=== PATIENT | female | born 1975 | race African-American/Black ===

== ENCOUNTER 2017-03-19 08:00 | Emergency (ER) | payer MEDICARE, OTHER ==
[~2017-03-19] VITALS: Ht 172.7 cm; Wt 134.7 kg
[~2017-03-19 08:00] MED LIST: HYDR-971 PO; PRED20TA PO
--- NOTE | 2017-03-19 08:41 | PHYS DOC ---
Past Medical History Past Medical History: Arthritis, Asthma, Hypertension, Other Additional Past Medical Histor: JORGE, osteoperosis, spinal stenosis, morbid obesity Past Surgical History: Other Additional Past Surgical Histo: knee surgery, sinus surgery Additional Information: 12/03 ppd Alcohol Use: None Drug Use: None Adult General Chief Complaint Chief Complaint: BACK PAIN OR INJURY HPI HPI Patient is a 41 year old female with history of hypertension asthma and arthritis who presents today with 10 out of 10 sharp right low back pain radiating into the right lower extremity that began a week ago when she fell. Patient denies any loss of consciousness. Patient denies any numbness or tingling to bilateral lower extremities. Denies any loss of bowel bladder function. She states the pain is worse when she is ambulating. She is also complaining of 10 out of 10 right medial knee pain. Patient states the pain began after she fell. Patient denies falling on the knee. She is requesting fentanyl for pain. She states her back has been x-rayed multiple times, she states she's been told she has arthritis in her back and she needs surgery. She states she follows up with [facility] as well as neurosurgeon. Review of Systems Review of Systems Constitutional: Denies fever or chills [] Eyes: Denies change in visual acuity, redness, or eye pain [] Musculoskeletal: Low back pain and right knee pain Integument: Denies rash or skin lesions [] Neurologic: Denies headache, focal weakness or sensory changes [] Endocrine: Denies polyuria or polydipsia [] Current Medications Current Medications Current Medications Medications (Trade) Dose Ordered Sig/Claudette Start Time Stop Time Status Last Admin Dose Admin Fentanyl Citrate (Fentanyl 2ml Vial) 50 mcg 1X ONCE 03/19/17 08:45 03/19/17 08:46 DC 03/19/17 08:31 50 MCG Allergies Allergies Allergies Coded Allergies Type Severity Reaction Last Updated Verified clindamycin Allergy Unknown 01/05/17 Yes hydromorphone Allergy Unknown 01/05/17 Yes Physical Exam Physical Exam Constitutional: Well developed, well nourished, no acute distress, non-toxic appearance. [] HENT: Normocephalic, atraumatic, bilateral external ears normal, oropharynx moist, no oral exudates, nose normal. [] Skin: Warm, dry, no erythema, no rash. [] Back: Diffuse paraspinal muscle tenderness to the right low lumbar region worse on the right SI joint, no midline tenderness, no CVA tenderness. Positive right leg straight raises. Extremities: Overweight patient, knee exam difficult due to weight as well as pain. Tenderness on palpation of the right medial knee. Patient herself is refusing to take the right knee through range of motion stating is painful. +2 right pedal pulse. Cap refill less than 2 seconds the right lower extremity. Sensation intact to the right lower extremity. Neurologic: Alert and oriented X 3, normal motor function, normal sensory function, no focal deficits noted. [] Psychologic: Affect normal, judgement normal, mood normal. [] Current Patient Data Vital Signs Vital Signs Date Time Temp Pulse Resp B/P Pulse Ox O2 Delivery O2 Flow Rate FiO2 03/19/17 08:32 78 18 130/67 98 Room Air 03/19/17 08:08 98.2 98.2 EKG EKG [] Radiology/Procedures Radiology/Procedures []PROCEDURE: KNEE RIGHT 4V Right knee, 4 views, 03/19/2017: History: Fall, right knee pain There is narrowing of the knee joint with moderate marginal spurring. There is severe degenerative change at the patellofemoral articulation. No fracture or dislocation is identified. There is mild subcutaneous edema about the knee. IMPRESSION: 1. Moderately severe degenerative change. 2. No acute bony or mass is detected. DICTATED and SIGNED BY: HAILEY ELLER MD DATE: 03/19/17 0906 CC: JONY DE LA FUENTE MD; EREN HAILE APRN ~ PROCEDURE: LUMBAR SPINE 2-3V Lumbar spine, 3 views, 03/19/2017: History: Low back pain radiating down the right leg, fall There is a well-defined calcific density along the anterosuperior corner of the L4 vertebral body compatible with a limbus vertebrae or old fracture fragment. The lumbar vertebral heights are otherwise well-maintained. There are mild scattered marginal spurs. There is mild narrowing of the L2-3 disc space. The paraspinous soft tissues are unremarkable. IMPRESSION: 1. Mild degenerative change. 2. No acute bony abnormality is detected. DICTATED and SIGNED BY: HAILEY ELLER MD DATE: 03/19/17 0910 CC: JONY DE LA FUENTE MD; EREN HAILE APRN ~ Course & Med Decision Making Course & Med Decision Making Pertinent Labs and Imaging studies reviewed. (See chart for details) Patient is in the ED with right knee pain and right low back pain after falling a couple days ago. Lumbar x-rays as well as right knee x-rays interpreted by radiologist are negative for any acute findings but noted for DJD of the knee and lumbar spine. Patient does have an orthopedic doctor as well as a neurosurgeon at [facility], recommended she follows up as soon as possible. Dragon Disclaimer Dragon Disclaimer This electronic medical record was generated, in whole or in part, using a voice recognition dictation system. 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 Please apply ice to the affected extremities. Elevate the right knee as much as you can. Follow- up with the orthopedic doctor as well as neurosurgeon at [facility] soon as you can. Come back to the ED if symptoms worsen. Scripts Naproxen 500 Mg Tablet.dr1 Tab PO BID #30 TAB Ref 1 Prov:EREN HAILE APRN 03/19/17 Cyclobenzaprine Hcl 10 Mg Tablet1 Tab PO TID #30 TAB Prov:EREN HAILE APRN 03/19/17 Problem Qualifiers Primary Impression: Fall from standing Encounter type: initial encounter Qualified Code: W19.XXXA - Unspecified fall, initial encounter Additional Impressions: DJD (degenerative joint disease) of knee Osteoarthritis type: unspecified Laterality: unspecified laterality Qualified Code: M17.9 - Osteoarthritis of knee, unspecified Degenerative joint disease (DJD) of lumbar spine Spinal osteoarthritis complication: unspecified spinal osteoarthritis Qualified Code: M47.816 - Spondylosis without myelopathy or radiculopathy, lumbar region Lumbar contusion Encounter type: initial encounter Qualified Code: S30.0XXA - Contusion of lower back and pelvis, initial encounter EREN HAILE APRN Mar 19, 2017 08:41
[2017-03-19] MEDS ORDERED: FENTANYL PF 100 MCG/2 ML VIAL. IM ONE (08:45)
--- NOTE | 2017-03-19 09:11 | RAD ---
Right knee, 4 views, 03/19/2017: History: Fall, right knee pain There is narrowing of the knee joint with moderate marginal spurring. There is severe degenerative change at the patellofemoral articulation. No fracture or dislocation is identified. There is mild subcutaneous edema about the knee. IMPRESSION: 1. Moderately severe degenerative change. 2. No acute bony or mass is detected.
--- NOTE | 2017-03-19 09:15 | RAD ---
Lumbar spine, 3 views, 03/19/2017: History: Low back pain radiating down the right leg, fall There is a well-defined calcific density along the anterosuperior corner of the L4 vertebral body compatible with a limbus vertebrae or old fracture fragment. The lumbar vertebral heights are otherwise well-maintained. There are mild scattered marginal spurs. There is mild narrowing of the L2-3 disc space. The paraspinous soft tissues are unremarkable. IMPRESSION: 1. Mild degenerative change. 2. No acute bony abnormality is detected.
[2017-03-19] MEDS ORDERED: NAPR500T8 PO (09:35)
[2017-03-19] MEDS ORDERED: CYCL10TA2 PO (09:35)
[2017-03-19 09:38] VITALS: BP 151/70
== END 2017-03-19 09:45 | disposition home or self-care (01) ==
LOC: ER 08:00
DX: S30.0XXA Contusion of lower back and pelvis, initial encounter (principal); M47.816 Spondylosis without myelopathy or radiculopathy, lumbar region; M17.9 Osteoarthritis of knee, unspecified; M54.41 Lumbago with sciatica, right side; I10 Essential (primary) hypertension; J45.909 Unspecified asthma, uncomplicated; G47.33 Obstructive sleep apnea (adult) (pediatric); M48.00 Spinal stenosis, site unspecified; F17.200 Nicotine dependence, unspecified, uncomplicated; Z98.890 Other specified postprocedural states; E66.01 Morbid (severe) obesity due to excess calories; Z68.42 Body mass index [BMI] 45.0-49.9, adult; Z88.1 Allergy status to other antibiotic agents; Z88.5 Allergy status to narcotic agent; W18.39XA Other fall on same level, initial encounter; Y93.89 Activity, other specified; Y99.8 Other external cause status; Y92.89 Other specified places as the place of occurrence of the external cause
CPT/HCPCS: 72100; 73564; 96372; 99284; J3010

== ENCOUNTER 2017-09-21 10:14 | Emergency (ER) | payer MEDICARE, OTHER ==
[~2017-09-21] VITALS: Ht 172.7 cm; Wt 113.4 kg
[~2017-09-21 10:14] MED LIST changes: +CYCL10TA2 PO; +NAPR500T8 PO
[2017-09-21] MEDS: fentaNYL PF VIAL 100 MCG/2 ML VIAL IV PRN ×2 (12:29→14:51)
[2017-09-21 12:47] LABS: BASO # 0.1 x10^3/uL (0.0-0.2); BASO % 1 % (0-3); EOS % 3 % (0-3); HEMATOCRIT 38.5 % (36.0-47.0); HEMOGLOBIN 12.8 g/dL (12.0-15.5); LYMPH # 2.2 x10^3/uL (1.0-4.8); LYMPH % 35 % (24-48); MEAN CORPUSCULAR HEMOGLOBIN 32 pg (25-35); MEAN CORPUSCULAR HGB CONC 33 g/dL (31-37); MEAN CORPUSCULAR VOLUME 95 fL (79-100); MONO % 7 % (0-9); NEUT % 53 % (31-73); PLATELET COUNT 271 x10^3/uL (140-400); RED BLOOD COUNT 4.05 x10^6/uL (3.50-5.40); RED CELL DISTRIBUTION WIDTH 13.4 % (11.5-14.5); WHITE BLOOD COUNT 6.3 x10^3/uL (4.0-11.0)
[2017-09-21 12:48] LABS: CREATININE 0.7 mg/dL (0.6-1.0); GFR 111.6; POTASSIUM 3.8 mmol/L (3.5-5.1)
[2017-09-21 12:54] LABS: ALBUMIN 3.5 g/dL (3.4-5.0); ALBUMIN/GLOBULIN RATIO 0.8 (1.0-1.7); TOTAL BILIRUBIN 0.3 mg/dL (0.2-1.0); TOTAL PROTEIN 8.1 g/dL (6.4-8.2)
--- NOTE | 2017-09-21 13:14 | PHYS DOC ---
Past Medical History Past Medical History: Arthritis, Asthma, Hypertension, Other Additional Past Medical Histor: JORGE, osteoperosis, spinal stenosis, morbid obesity Past Surgical History: Other Additional Past Surgical Histo: knee surgery, sinus surgery,BACK SURGERY 2016 Alcohol Use: None Drug Use: None Adult General Chief Complaint Chief Complaint: BACK PAIN OR INJURY HPI HPI Patient is a 42 year old female who presents with back pain. The patient reports three-day history of lower back pain without recent trauma. She reports pain radiating down bilateral lower extremities worse on the right. She reports numbness and tingling to bilateral feet without weakness. She reports loss of control of bowels and bladder over the past 3 days which is unusual for her. Denies fevers or chills, abdominal pain, nausea or vomiting, diarrhea, dysuria or hematuria. History of spinal stenosis status post back surgery at [facility] in 04/2017. Review of Systems Review of Systems Constitutional: Denies fever or chills Eyes: Denies change in visual acuity HENT: Denies nasal congestion or sore throat Respiratory: Denies cough or shortness of breath Cardiovascular: Denies chest pain GI: Denies abdominal pain, nausea, vomiting, or diarrhea, reports bowel incontinence : Denies dysuria or hematuria, reports incontinence Musculoskeletal: Reports back pain Integument: Denies rash or skin lesions Neurologic: Denies headache, reports bilateral lower extremity numbness and tingling Current Medications Current Medications Current Medications Medications (Trade) Dose Ordered Sig/Claudette Start Time Stop Time Status Last Admin Dose Admin Fentanyl Citrate (Fentanyl 2ml Vial) 50 mcg PRN Q15MIN PRN 09/21/17 12:15 09/22/17 12:14 09/21/17 12:29 50 MCG Allergies Allergies Allergies Coded Allergies Type Severity Reaction Last Updated Verified clindamycin Allergy Unknown 01/05/17 Yes hydromorphone Allergy Unknown 01/05/17 Yes Physical Exam Physical Exam Constitutional: Obese, no acute distress, non-toxic appearance. HENT: Normocephalic, atraumatic, bilateral external ears normal, oropharynx moist, nose normal. Eyes: PERRLA, EOMI, conjunctiva normal, no discharge. Neck: supple, no stridor. Cardiovascular: RRR, no murmurs, no edema. Lungs & Thorax: LCTAB, no wheezing, no respiratory distress. Abdomen: soft, nontender, nondistended. No masses or pulsatile masses Skin: Warm, dry, no erythema, no rash. Back: Diffuse lumbar spine tenderness without step-offs, bilateral paraspinous muscle tenderness also present. Extremities: No tenderness, no edema. Distal pulses palpable bilaterally to lower extremities Neurologic: Alert and oriented X 3, motor strength and sensation to lower extremities. normal rectal tone but patient states she does not feel my finger on exam. Psychologic: Affect normal, judgement normal, mood normal. Current Patient Data Vital Signs Vital Signs Date Time Temp Pulse Resp B/P (MAP) Pulse Ox O2 Delivery O2 Flow Rate FiO2 09/21/17 12:34 92 18 132/86 (101) 100 Room Air 09/21/17 11:40 98.2 98.2 Lab Values Laboratory Tests Test 09/21/17 12:22 White Blood Count 6.3 x10^3/uL (4.0-11.0) Red Blood Count 4.05 x10^6/uL (3.50-5.40) Hemoglobin 12.8 g/dL (12.0-15.5) Hematocrit 38.5 % (36.0-47.0) Mean Corpuscular Volume 95 fL (79-100) Mean Corpuscular Hemoglobin 32 pg (25-35) Mean Corpuscular Hemoglobin Concent 33 g/dL (31-37) Red Cell Distribution Width 13.4 % (11.5-14.5) Platelet Count 271 x10^3/uL (140-400) Neutrophils (%) (Auto) 53 % (31-73) Lymphocytes (%) (Auto) 35 % (24-48) Monocytes (%) (Auto) 7 % (0-9) Eosinophils (%) (Auto) 3 % (0-3) Basophils (%) (Auto) 1 % (0-3) Neutrophils # (Auto) 3.3 x10^3uL (1.8-7.7) Lymphocytes # (Auto) 2.2 x10^3/uL (1.0-4.8) Monocytes # (Auto) 0.4 x10^3/uL (0.0-1.1) Eosinophils # (Auto) 0.2 x10^3/uL (0.0-0.7) Basophils # (Auto) 0.1 x10^3/uL (0.0-0.2) Sodium Level 143 mmol/L (136-145) Potassium Level 3.8 mmol/L (3.5-5.1) Chloride Level 108 mmol/L (98-107) H Carbon Dioxide Level 24 mmol/L (21-32) Anion Gap 11 (6-14) Blood Urea Nitrogen 10 mg/dL (7-20) Creatinine 0.7 mg/dL (0.6-1.0) Estimated GFR (Cockcroft-Gault) 111.6 BUN/Creatinine Ratio 14 (6-20) Glucose Level 82 mg/dL (70-99) Calcium Level 9.0 mg/dL (8.5-10.1) Total Bilirubin 0.3 mg/dL (0.2-1.0) Aspartate Amino Transferase (AST) 16 U/L (15-37) Alanine Aminotransferase (ALT) 15 U/L (14-59) Alkaline Phosphatase 84 U/L (46-116) Total Protein 8.1 g/dL (6.4-8.2) Albumin 3.5 g/dL (3.4-5.0) Albumin/Globulin Ratio 0.8 (1.0-1.7) L Laboratory Tests 09/21/17 12:22 Laboratory Tests 09/21/17 12:22 EKG EKG [] Radiology/Procedures Radiology/Procedures [] Course & Med Decision Making Course & Med Decision Making Pertinent Labs and Imaging studies reviewed. (See chart for details) The patient presents with back pain & associated symptoms concerning for cauda equina syndrome. Unfortunately the MRI is down today at [facility] for maintenance. Recommended transfer to [facility] as they would have MRI capability & she was seen previously there for her surgery. Patient agreed. Discussed with triage nurse at [facility], patient accepted for transfer by Dr. Lovett of neurosurgery at [facility]. They will have ability to do MRI & guide care based on results. Patient is to be transferred by EMS in stable condition. [] Dragon Disclaimer Dragon Disclaimer This electronic medical record was generated, in whole or in part, using a voice recognition dictation system. Departure Departure Impression: Primary Impression: Back pain Disposition: 05 TRANSFER OTHER Condition: STABLE JAY TREVIZO MD Sep 21, 2017 13:14
[2017-09-21 13:48] LABS: BILIRUBIN,URINE NEGATIVE (NEG); GLUCOSE,URINE NEGATIVE (NEG); NITRITE,URINE NEGATIVE (NEG); PROTEIN,URINE NEGATIVE (NEG-TRACE); UROBILINOGEN,URINE 0.2 mg/dL (0.2 mg/dL)
[2017-09-21 13:51] LABS: BACTERIA,URINE MODERATE /HPF (0-FEW); RBC,URINE 0 /HPF (0-2); SQUAMOUS EPITHELIAL CELL,UR MOD /LPF
[2017-09-21 14:31] VITALS: BP 142/98
== END 2017-09-21 15:26 | disposition short-term general hospital (02) ==
LOC: ER 10:14
DX: M54.5 Low back pain (principal); R20.0 Anesthesia of skin; R20.2 Paresthesia of skin; M19.90 Unspecified osteoarthritis, unspecified site; J45.909 Unspecified asthma, uncomplicated; I10 Essential (primary) hypertension; E66.01 Morbid (severe) obesity due to excess calories; Z68.38 Body mass index [BMI] 38.0-38.9, adult; Z88.1 Allergy status to other antibiotic agents; Z88.5 Allergy status to narcotic agent
CPT/HCPCS: 36415; 80053; 81001; 85025; 87086; 96374; 96376; 99285; J3010

== ENCOUNTER 2019-04-25 07:24 | Emergency (ER) | payer MEDICARE, OTHER ==
[~2019-04-25] VITALS: Ht 172.7 cm; Wt 107.0 kg
[~2019-04-25 07:24] MED LIST changes: +HYDR-3164 PO; -HYDR-971 PO
[2019-04-25 07:51] VITALS: BP 163/91
[2019-04-25] MEDS ORDERED: HYDR-3164 PO (08:10)
[2019-04-25] MEDS ORDERED: METH4TAB7 PO (08:10)
[2019-04-25] MEDS ORDERED: oxyCODONE/APAP 10/325 1 TAB TABLET PO ONE (08:15)
--- NOTE | 2019-04-25 08:19 | PHYS DOC ---
Past Medical History Past Medical History: Arthritis, Asthma, Depression, Hypertension, Other Additional Past Medical Histor: JORGE, osteoperosis, spinal stenosis, morbid obesity Past Surgical History: Other Additional Past Surgical Histo: knee surgery, sinus surgery,BACK SURGERY 2016 Alcohol Use: None Drug Use: None Adult General Chief Complaint Chief Complaint: PAIN CONTROL HPI HPI Patient is a 43 year old female with history of spinal stenosis, morbid obesity, osteoarthritis and chronic back pain who presents with exacerbation of chronic back pain 3-4 days. Patient denies trauma fall or injury to the region. Pain radiates from the low back to right toes. Patient has rate out of 10 out of 10. Although, patient states her baseline pain is 10 out of 10, her current pain is worse. Denies motor weakness or loss of sensation. No urinary frequency cough. No fever chills or sweats. No rash. No other acute symptoms or complaints. Patient takes Flexeril daily basis, but has been out of hydrocodone for the past 3 weeks. Patient has not contacted her PCP or schedule an appointment to be evaluated for her current complaint. [] Review of Systems Review of Systems ROS as per HPI. All other systems were reviewed and found to be within normal limits, except as documented in this note. Current Medications Current Medications Current Medications Medications (Trade) Dose Ordered Sig/Claudette Start Time Stop Time Status Last Admin Dose Admin Oxycodone/ Acetaminophen (Percocet 10/325) 1 tab 1X ONCE 04/25/19 08:15 04/25/19 08:16 Allergies Allergies Allergies Coded Allergies Type Severity Reaction Last Updated Verified clindamycin Allergy Unknown 01/05/17 Yes hydromorphone Allergy Unknown 01/05/17 Yes Physical Exam Physical Exam Constitutional: Well developed, anxious, moderate discomfort secondary to pain . [] HENT: Normocephalic, atraumatic, bilateral external ears normal, oropharynx moist, nose normal. [] Eyes: PERRLA, EOMI. [] Neck: Normal range of motion. [] Cardiovascular:Heart rate regular rhythm, no murmur [] Lungs & Thorax: Bilateral breath sounds clear to auscultation [] Back: No midline bony tenderness, no CVA tenderness. [] Extremities: No tenderness. () Neurologic: Alert and oriented X 3, normal motor function, normal sensory function, no focal deficits noted. [] Psychologic: Affect normal, judgement normal, mood normal. [] Current Patient Data Vital Signs Vital Signs Date Time Temp Pulse Resp B/P (MAP) Pulse Ox O2 Delivery O2 Flow Rate FiO2 04/25/19 07:51 98.6 99 16 163/91 (115) 95 Room Air 98.6 EKG EKG [] Radiology/Procedures Radiology/Procedures [] Course & Med Decision Making Course & Med Decision Making Pertinent Labs and Imaging studies reviewed. (See chart for details) [Acute on chronic back pain, no motor weakness. Pain reproduces on exam. Pain addressed recommend PCP follow up for further evaluation and management of chronic back pain. ] Dragon Disclaimer Dragon Disclaimer This electronic medical record was generated, in whole or in part, using a voice recognition dictation system. Departure Departure Impression: Primary Impression: Acute lumbar radiculopathy Disposition: HOME, SELF-CARE Condition: GOOD Patient Instructions: Back Pain, Adult, [id number] Additional Instructions: Please go home and rest. Avoid heavy lifting and strenuous physical activity. Follow up with your PCP in the next 3 days for re-evaluation. Continue Flexeril and take newly prescribed medications as directed. Scripts Methylprednisolone (METHYLPREDNISOLONE) 4 Mg Tablet 1 PKG PO UD, #1 PKG Prov: SANDY RICE DO 04/25/19 Hydrocodone/Apap 5-325 (NORCO 5-325 TABLET) 1 Each Tablet 1 TAB PO TID, #8 TAB Prov: SANDY RICE DO 04/25/19 SANDY RICE DO April 25, 2019 08:19
== END 2019-04-25 08:22 | disposition home or self-care (01) ==
LOC: ER 07:24
DX: M54.16 Radiculopathy, lumbar region (principal); G89.29 Other chronic pain; J45.909 Unspecified asthma, uncomplicated; I10 Essential (primary) hypertension; G47.33 Obstructive sleep apnea (adult) (pediatric); E66.01 Morbid (severe) obesity due to excess calories; Z68.35 Body mass index [BMI] 35.0-35.9, adult; Z98.890 Other specified postprocedural states; Z88.1 Allergy status to other antibiotic agents; Z88.5 Allergy status to narcotic agent
CPT/HCPCS: 99284

== ENCOUNTER 2021-01-15 14:03 | Emergency (ER) | payer OTHER, MEDICAID ==
[~2021-01-15] VITALS: Ht 172.7 cm; Wt 144.4 kg
[~2021-01-15 14:03] MED LIST changes: +METH4TAB7 PO
[2021-01-15 14:35] LABS: BASO # 0.1 x10^3/uL (0.0-0.2); BASO % 1 % (0-3); EOS # 0.2 x10^3/uL (0.0-0.7); EOS % 3 % (0-3); HEMATOCRIT 39.4 % (36.0-47.0); LYMPH # 2.8 x10^3/uL (1.0-4.8); LYMPH % 32 % (24-48); MEAN CORPUSCULAR HEMOGLOBIN 30 pg (25-35); MEAN CORPUSCULAR HGB CONC 33 g/dL (31-37); MEAN CORPUSCULAR VOLUME 92 fL (79-100); MONO # 0.5 x10^3/uL (0.0-1.1); MONO % 5 % (0-9); NEUT # 5.3 x10^3/uL (1.8-7.7); NEUT % 59 % (31-73); PLATELET COUNT 279 x10^3/uL (140-400); RED CELL DISTRIBUTION WIDTH 13.1 % (11.5-14.5); WHITE BLOOD COUNT 8.9 x10^3/uL (4.0-11.0)
--- NOTE | 2021-01-15 14:41 | ED.ADGEN ---
Past Medical History Past Medical History: Arthritis, Asthma, COPD, Depression, Hypertension, Other Additional Past Medical Histor: JORGE, osteoperosis, spinal stenosis, morbid obesity Past Surgical History: Other Additional Past Surgical Histo: knee surgery, sinus surgery,BACK SURGERY 2017 Smoking Status: Current Every Day Smoker Alcohol Use: None Drug Use: None General Adult EDM: Chief Complaint: ALLERGIC REACTION HPI: HPI: Patient is a 45 year old AA female who presents to the emergency department with complaints of right lower lip swelling started about 11:00 this morning and is progressively gotten worse. Patient states for about the last hour her lip is also itched. She denies any shortness of breath but states that her throat has felt a little itchy. Patient reports that she started taking 20 mg of lisinopril daily approximately 1 month ago. She denies any other new medications. Patient denies any new foods, detergents, or environmental exposures. She states that the only thing she had today was lisinopril she had not even eaten before her symptoms started. She denies any fever, tongue swelling, gingival swelling, dental pain, cough, shortness of breath, chest pain, palpitations, nausea, vomiting, diarrhea, body aches, fatigue, or dysphagia. She denies any pain at this time. Review of Systems: Review of Systems: Complete ROS is negative unless otherwise noted in HPI. Current Medications: Current Medications Medications (Trade) Dose Ordered Sig/Claudette Start Time Stop Time Status Last Admin Dose Admin Dexamethasone Sodium Phosphate (Decadron) 10 mg 1X ONCE 01/15/21 14:45 01/15/21 14:46 DC 01/15/21 14:51 10 MG Diphenhydramine HCl (Benadryl) 25 mg 1X ONCE 01/15/21 14:45 01/15/21 14:46 DC 01/15/21 14:51 25 MG Famotidine (Pepcid Vial) 20 mg 1X ONCE 01/15/21 14:45 01/15/21 14:46 DC 01/15/21 14:51 20 MG Sodium Chloride 1,000 ml @ 1,000 mls/hr 1X ONCE 01/15/21 14:45 01/15/21 15:44 DC 01/15/21 14:50 1,000 MLS/HR Allergies: Allergies: Allergies Coded Allergies Type Severity Reaction Last Updated Verified clindamycin Allergy Intermediate 01/15/21 Yes hydromorphone Allergy Intermediate 01/15/21 Yes lisinopril Allergy Intermediate 01/15/21 Yes Physical Exam: PE: See Above Constitutional: Well developed, well nourished, no acute distress, non-toxic appearance, obese. [] HENT: Normocephalic, atraumatic, bilateral external ears normal, nose normal, oropharynx moist, posterior pharynx normal. [] Eyes: PERRLA, EOMI, conjunctiva normal, no discharge. [] Neck: Normal range of motion, supple, nontender, no stridor. [] Cardiovascular:Heart rate regular rhythm Lungs & Thorax: Respirations even and unlabored, no retractions, no respiratory distress, no wheezing Skin: Warm, dry; swelling; significant edema and warmth to right lower lip concerning for angioedema Extremities: No cyanosis, ROM intact, no edema. [] Neurologic: Alert and oriented X 3, no focal deficits noted. [] Psychologic: Affect normal, judgement normal, mood normal. [] Current Patient Data: Labs: Laboratory Tests Test 01/15/21 14:15 White Blood Count 8.9 x10^3/uL (4.0-11.0) Red Blood Count 4.30 x10^6/uL (3.50-5.40) Hemoglobin 13.0 g/dL (12.0-15.5) Hematocrit 39.4 % (36.0-47.0) Mean Corpuscular Volume 92 fL (79-100) Mean Corpuscular Hemoglobin 30 pg (25-35) Mean Corpuscular Hemoglobin Concent 33 g/dL (31-37) Red Cell Distribution Width 13.1 % (11.5-14.5) Platelet Count 279 x10^3/uL (140-400) Neutrophils (%) (Auto) 59 % (31-73) Lymphocytes (%) (Auto) 32 % (24-48) Monocytes (%) (Auto) 5 % (0-9) Eosinophils (%) (Auto) 3 % (0-3) Basophils (%) (Auto) 1 % (0-3) Neutrophils # (Auto) 5.3 x10^3/uL (1.8-7.7) Lymphocytes # (Auto) 2.8 x10^3/uL (1.0-4.8) Monocytes # (Auto) 0.5 x10^3/uL (0.0-1.1) Eosinophils # (Auto) 0.2 x10^3/uL (0.0-0.7) Basophils # (Auto) 0.1 x10^3/uL (0.0-0.2) Sodium Level 138 mmol/L (136-145) Potassium Level 3.5 mmol/L (3.5-5.1) Chloride Level 104 mmol/L (98-107) Carbon Dioxide Level 21 mmol/L (21-32) Anion Gap 13 (6-14) Blood Urea Nitrogen 17 mg/dL (7-20) Creatinine 0.9 mg/dL (0.6-1.0) Estimated GFR (Cockcroft-Gault) 82.3 BUN/Creatinine Ratio 19 (6-20) Glucose Level 95 mg/dL (70-99) Calcium Level 9.4 mg/dL (8.5-10.1) Total Bilirubin 0.6 mg/dL (0.2-1.0) Aspartate Amino Transferase (AST) 16 U/L (15-37) Alanine Aminotransferase (ALT) 31 U/L (14-59) Alkaline Phosphatase 77 U/L (46-116) C-Reactive Protein, Quantitative 7.6 mg/L (0-3.3) H Total Protein 8.2 g/dL (6.4-8.2) Albumin 3.8 g/dL (3.4-5.0) Albumin/Globulin Ratio 0.9 (1.0-1.7) L Laboratory Tests 01/15/21 14:15 Laboratory Tests 01/15/21 14:15 Vital Signs: Vital Signs Date Time Temp Pulse Resp B/P (MAP) Pulse Ox O2 Delivery O2 Flow Rate FiO2 01/15/21 15:45 84 16 158/76 (103) 99 Room Air 01/15/21 14:05 97.3 97.3 EKG: EKG: [] Heart Score: Risk Factors: Risk Factors: DM, Current or recent (<one month) smoker, HTN, HLP, family history of CAD, obesity. Risk Scores: Score 0 - 3: 2.5% MACE over next 6 weeks - Discharge Home Score 4 - 6: 20.3% MACE over next 6 weeks - Admit for Clinical Observation Score 7 - 10: 72.7% MACE over next 6 weeks - Early Invasive Strategies Radiology/Procedures: Radiology/Procedures: [] Course & Med Decision Making: Course & Med Decision Making Pertinent Labs and Imaging studies reviewed. (See chart for details) 45-year-old female presents emergency department with complaints of swelling to her right lower lip that began today. Patient reported taking lisinopril 20 mg tablets for the last month. Physical exam is concerning for angioedema. The patient was given 1 L of normal saline, 25 mg of Benadryl, 10 mg Decadron, and 20 mg of famotidine via IV in the ER. The patient's swelling did not worsen after these medications. Her vital signs are stable. Prescriptions were written for a Medrol Dosepak, famotidine, and Benadryl. The patient was instructed to stop taking her lisino pril, call her primary care doctor in the morning for follow-up. Return to the ER if symptoms worsen. Patient verbalized an understanding of home care, medications, follow-up, and return to ED instructions and was in agreement with the plan of care. Dragon Disclaimer: Dragon Disclaimer: This electronic medical record was generated, in whole or in part, using a voice recognition dictation system. Departure Departure Impression: Primary Impression: Angio-edema Disposition: 01 DC HOME SELF CARE/HOMELESS Condition: STABLE Referrals: JONY DE LA FUENTE MD (PCP) Patient Instructions: Angioedema, [id number] Additional Instructions: DISCONTINUE USE OF LISINOPRIL. Fill the prescriptions and use as directed. Return to the ER if your symptoms worsen or you develop difficulty or change in breathing. Follow up with your primary care doctor tomorrow. Scripts Diphenhydramine Hcl (BENADRYL) 25 Mg Capsule 1 CAP PO PRN Q6HRS PRN for ITCHING for 5 Days, #20 CAP 0 Refills Prov: KAELYN CHAVEZ SURGICAL INSTRUMENT TECHNICIAN 01/15/21 Famotidine (FAMOTIDINE) 20 Mg Tablet 20 MG PO BID for 10 Days, #20 TAB 0 Refills Prov: KAELYN CHAVEZ SURGICAL INSTRUMENT TECHNICIAN 01/15/21 Methylprednisolone (MEDROL) 4 Mg Tab.ds.pk 1 PKG PO UD for 6 Days, #1 PKG 0 Refills start taking on 01/16/21 Prov: KAELYN CHAVEZ SURGICAL INSTRUMENT TECHNICIAN 01/15/21 Attending Signature Attending Signature I have reviewed the PA/FURRIER DESIGNER's note and plan of care. I was available for consultation as needed during the patient's visit in the emergency department. I agree with the clinical impression, plan, and disposition. Problem Qualifiers Primary Impression: Angio-edema Encounter type: initial encounter Qualified Codes: T78.3XXA - Angioneurotic edema, initial encounter KAELYN CHAVEZ APRN Jan 15, 2021 14:41 KATELIN PANG DO Jan 16, 2021 07:28
[2021-01-15 14:45] LABS: CALCIUM 9.4 mg/dL (8.5-10.1); CREATININE 0.9 mg/dL (0.6-1.0); GFR 82.3; POTASSIUM 3.5 mmol/L (3.5-5.1)
[2021-01-15] MEDS ORDERED: IV NORMAL SALINE 1000ML BAG 1,000 ML IV ONE (14:45)
[2021-01-15] MEDS ORDERED: DEXAMETHASONE SOD PHOS 20 MG/5 ML VIAL. IV ONE (14:45)
[2021-01-15] MEDS ORDERED: FAMOTIDINE 20 MG/2 ML VIAL IVP ONE (14:45)
[2021-01-15] MEDS ORDERED: diphenhydrAMINE 50 MG/ML VIAL IVP ONE (14:45)
[2021-01-15 14:51] LABS: ALBUMIN 3.8 g/dL (3.4-5.0); ALBUMIN/GLOBULIN RATIO 0.9 (1.0-1.7); C-REACTIVE PROTEIN 7.6 mg/L (0-3.3); TOTAL BILIRUBIN 0.6 mg/dL (0.2-1.0); TOTAL PROTEIN 8.2 g/dL (6.4-8.2)
[2021-01-15 15:45] VITALS: BP 158/76
[2021-01-15] MEDS ORDERED: METH4TAB2 PO (16:10)
[2021-01-15] MEDS ORDERED: FAMO20TA5 PO (16:10)
[2021-01-15] MEDS ORDERED: DIPH25CA58 PO (16:10)
== END 2021-01-15 16:43 | disposition home or self-care (01) ==
LOC: ER 14:03
DX: T78.3XXA Angioneurotic edema, initial encounter (principal); M19.90 Unspecified osteoarthritis, unspecified site; J44.9 Chronic obstructive pulmonary disease, unspecified; F32.9 Major depressive disorder, single episode, unspecified; I10 Essential (primary) hypertension; F17.200 Nicotine dependence, unspecified, uncomplicated; E66.01 Morbid (severe) obesity due to excess calories; Z98.890 Other specified postprocedural states; Z68.42 Body mass index [BMI] 45.0-49.9, adult; Z88.1 Allergy status to other antibiotic agents; Z88.5 Allergy status to narcotic agent; Z88.6 Allergy status to analgesic agent; Y92.89 Other specified places as the place of occurrence of the external cause
CPT/HCPCS: 36415; 80053; 85025; 86140; 96361; 96374; 96375; 99284; J1100; J1200; J3490; J7030